=== PATIENT | female | born 1970 | race Caucasian/White ===

== ENCOUNTER → 2025-04-21 17:38 | Outpatient (CLI) | payer BC, SELFPAY ==
--- NOTE | 2025-04-21 17:39 | DI.MG.S_ITS ---
MM screening mammo BI: 04/21/2025. BI-RADS: 1 CLINICAL: 55-year old female for bilateral screening mammogram. Tyrer-Cuzick lifetime risk of 7.5%. No personal or first-degree family history of breast cancer. PRIOR EXAMS 05/08/2023. MAMMOGRAPHY TECHNIQUE: 2D and 3D (tomosynthesis) digital mammographic views obtained, with additional images as needed for full coverage. Current study was also evaluated with a Computer Aided Detection (CAD) system. DENSITY B. There are scattered areas of fibroglandular density. MAMMOGRAPHY FINDINGS Bilateral: No suspicious mass, asymmetry, microcalcification, or other abnormality seen. IMPRESSION: * No evidence of malignancy. RECOMMENDATIONS Bilateral * Annual screening mammography. OVERALL ASSESSMENT CATEGORY BI-RADS-1: Negative. The [employer] recommends annual screening mammography beginning at age 40 for women with average risk of breast cancer. ELECTRONICALLY SIGNED: Sandie Warren M.D. on 04/24/2025 at 08:24:25 AM PT Interpreting Station ID: [id number]
== END ==
LOC: MAMMO 17:38
PROVIDERS: PCP Registered Nurse; Referring Provider Registered Nurse; Visit Provider Registered Nurse
DX: Z12.31 Encounter for screening mammogram for malignant neoplasm of breast (principal)
CPT/HCPCS: 77063; 77067

== ENCOUNTER 2025-05-22 11:07 | Emergency (ER) | payer BC, SELFPAY ==
[2025-05-22 11:36] VITALS: BP 161/85; PULSE 70; RESP 18; TEMP 36.6; O2SAT 99; BMI 29.8
== END 2025-05-22 15:44 | disposition left against medical advice (07) ==
PROVIDERS: Emergency Provider Physician Assistant; PCP Registered Nurse
DX: R19.7 Diarrhea, unspecified (principal); R53.1 Weakness; R10.84 Generalized abdominal pain
CPT/HCPCS: 81003; 99281